=== PATIENT | male | born 1965 | race Caucasian/White ===

== ENCOUNTER 2023-07-06 12:37 | Emergency (ER) | payer SELFPAY ==
[~2023-07-06] VITALS: Ht 182.9 cm; Wt 90.7 kg
[~2023-07-06 12:37] MED LIST: CEPH500 PO; CYCL10 PO; HYDACE5 PO; HYDACE5325; IBUP800 PO; META800 PO; NAPR550 PO; OXYACE5T PO; OXYACE7.5T PO; PRED20 PO; RXOXYACE PO
[2023-07-06 13:00] LABS: Chloride (POC) 101 mmol/L (98-108); Creatinine (POC) 1.3 mg/dL (0.8-1.3); Glucose (ISTAT POC) 293 mg/dL (70-99); Hemoglobin (POC) 18.4 g/dL (13.5-17.5); Potassium (POC) 4.4 mmol/L (3.5-5.5); Sodium (POC) 138 mmol/L (135-148); Total CO2 (POC) 24 mmol/L (21-32)
== END 2023-07-06 15:50 ==
LOC: ER 12:37
PROVIDERS: Emergency Medicine
DX: I46.9 Cardiac arrest, cause unspecified (principal); Z79.899 Other long term (current) drug therapy
CPT/HCPCS: 31500; 80047; 85014; 92950; 99285-25; J0461; J2310; J2680